=== PATIENT | female | born 1985 | race Caucasian/White ===

== ENCOUNTER 2017-03-25 17:51 | Emergency (ER) | payer OTHER ==
[~2017-03-25] VITALS: Ht 160 cm; Wt 120.2 kg
[2017-03-25] MEDS ORDERED: HYZAAR 100-12.1 EACH (18:01)
[2017-03-25] MEDS ORDERED: SYNTHROID150 MCG (18:02)
== END 2017-03-25 21:51 | disposition home or self-care (01) ==
LOC: ER 17:51
DX: J11.1 Influenza due to unidentified influenza virus with other respiratory manifestations (principal); B34.9 Viral infection, unspecified

== ENCOUNTER 2017-07-18 15:58 | Emergency (ER) | payer OTHER ==
[~2017-07-18] VITALS: Ht 160 cm; Wt 125.6 kg
[~2017-07-18 15:58] MED LIST: HYZAAR 100-12.1 EACH; SYNTHROID150 MCG
== END 2017-07-18 20:29 | disposition home or self-care (01) ==
LOC: ER 15:58
DX: I10 Essential (primary) hypertension (principal); N93.8 Other specified abnormal uterine and vaginal bleeding